=== PATIENT | female | born 1965 | race Caucasian/White ===

== ENCOUNTER → 2017-11-15 | Outpatient (CLI) | payer BC ==
--- NOTE | 2017-11-15 09:25 | Diagnostic Imaging Report ---
PROCEDURE: US Gallbladder. TECHNIQUE: Multiple real-time grayscale images were obtained over the right upper quadrant in various projections. INDICATION: Right upper quadrant pain. FINDINGS: Liver parenchyma appears normal. Bile ducts are not dilated. Common duct measures 3 mm. Gallbladder appears normal. There are no gallstones or wall thickening. Gallbladder wall measures 2 mm. Pancreas appears normal. Right kidney appears normal measuring 11.7 x 4.7 x 6.3 cm. There is no ascites. Doppler imaging shows normal flow in portal vein. IMPRESSION: Normal right upper quadrant ultrasound. Dictated by: Dictated on workstation # [id number]
== END ==
LOC: RAD 08:07
PROVIDERS: ATTEND Nurse Practitioner Family
DX: R19.7 Diarrhea, unspecified (principal)
CPT/HCPCS: 76705

== ENCOUNTER → 2017-12-02 | Outpatient (CLI) | payer BC ==
[~2017-12-02] MED LIST: CATHETER FLUSH 10 ML SYR IV PRN
--- NOTE | 2017-12-02 12:21 | Diagnostic Imaging Report ---
INDICATION: Abdominal pain and chronic diarrhea. TECHNIQUE: The patient was administered 5.4 mCi technetium 99m Choletec intravenously and imaging over the abdomen was performed. Next, patient ingested 8 ounces of Ensure and gallbladder ejection fraction was calculated. FINDINGS: There is homogeneous uptake of activity by the liver. Prompt excretion of activity into the common duct is noted with passage of activity into the gallbladder. There is normal passage of activity into the small bowel. Gallbladder ejection fraction is calculated to be 36%. Normal value is at 35% or greater. IMPRESSION: Normal HIDA scan and gallbladder ejection fraction. Dictated by: Dictated on workstation # [id number]
== END ==
LOC: CARD 09:39
PROVIDERS: ATTEND Family Medicine
DX: K52.9 Noninfective gastroenteritis and colitis, unspecified (principal)
CPT/HCPCS: 78227